=== PATIENT | female | born 2000 | race Caucasian/White ===

== ENCOUNTER 2019-08-01 14:14 | Emergency (ER) | payer MEDICAID, OTHER ==
[~2019-08-01] VITALS: Ht 161.3 cm; Wt 80.7 kg
[2019-08-01 14:17] VITALS: BP 131/82
--- NOTE | 2019-08-01 14:23 | NUR ---
PT AMBULATED TO ER BED 8
--- NOTE | 2019-08-01 14:25 | NUR ---
PT AMB TO BATHROOM TO PROVIDE URINE SAMPLE
--- NOTE | 2019-08-01 14:37 | NUR ---
19 YO F C/C OF VAGINAL BLEEDING DURING . PT IS 10 WEEKS AND STATES SHE STARTED HAVING LIGHT BLEEDING ONE WEEK AGO THAT STARTED INCREASING TODAY. PT DESCRIBES THE BLEEDING RED AND MODERATE. PT STATES SHE HAS 2/10 LOWER ABDOMINAL ACHING PAIN. THIS IS HER FIRST . PT TRAVELED TO [facility] 07/15-07/21, DENIES FEVER, COUGH OR SOB. HX: NA MEDS: VITAMINS NKA
--- NOTE | 2019-08-01 16:00 | NUR ---
PT RESTING IN BED. VSS.
--- NOTE | 2019-08-01 16:57 | NUR ---
LAB ORDER OBTAINED , GIVEN TO CEMENT WORKER
[2019-08-01 17:04] LABS: BASOPHILS # (AUTO) 0.1 K/uL (0.00-0.22); BASOPHILS % (AUTO) 0.7 % (0.0-2.0); EOSINOPHILS # (AUTO) 0.1 K/uL (0-0.4); EOSINOPHILS % (AUTO) 1.2 % (0.0-4.0); HEMATOCRIT 40.8 % (36-48); HEMOGLOBIN 13.3 g/dL (12.0-16.0); LYMPHOCYTES # (AUTO) 2.1 K/uL (2.5-16.5); LYMPHOCYTES % (AUTO) 21.8 % (20.5-51.1); MEAN CORPUSCULAR HEMOGLOBIN 26 pg (27-31); MEAN CORPUSCULAR HGB CONC 33 g/dL (33-37); MEAN CORPUSCULAR VOLUME 80.2 fL (80-94); MONOCYTES # (AUTO) 0.7 K/uL (0.8-1.0); MONOCYTES % (AUTO) 7.7 % (1.7-9.3); NEUTROPHILS # (AUTO) 6.6 K/uL (1.8-7.7); NEUTROPHILS % (AUTO) 68.6 % (42.2-75.2); PLATELET COUNT (AUTO) 321 K/uL (140-450); RED BLOOD CELL COUNT(AUTO) 5.08 MIL/uL (4.20-5.40); RED CELL DISTRIBUTION WIDTH 15.7 % (11.6-13.7); WHITE BLOOD COUNT (AUTO) 9.6 K/uL (4.8-10.8)
[2019-08-01 17:05] LABS: APPEARANCE,URINE CLEAR (CLEAR); BILIRUBIN,URINE NEGATIVE (NEGATIVE); BLOOD, URINE 3+ (NEGATIVE); COLOR,URINE YELLOW (YELLOW); LEUKOCYTE ESTERASE ,URINE TRACE (NEGATIVE); NITRITE, URINE NEGATIVE (NEGATIVE); UGLUCOSE NEGATIVE (NEGATIVE)
[2019-08-01 17:12] LABS: ANION GAP 13.9 (8-16); CARBON DIOXIDE 24.9 mmol/L (21-32); CREATININE 0.8 mg/dL (0.6-1.3); POTASSIUM 3.8 mmol/L (3.5-5.1)
[2019-08-01 17:18] LABS: WBC,URINE 0-5 /HPF (0-5)
[2019-08-01 18:46] VITALS: BP 119/57
--- NOTE | 2019-08-01 18:46 | NUR ---
Patient discharged with v/s stable. Written and verbal after care instructions given and explained. Patient verbalized understanding. Ambulatory with steady gait. All questions addressed prior to discharge. Advised to follow up with PMD.
== END 2019-08-01 18:46 | disposition home or self-care (01) ==
LOC: MED 14:14
DX: O20.0 Threatened abortion (principal); Z3A.12 12 weeks gestation of pregnancy
CPT/HCPCS: 36415; 76801; 80048; 81001; 81025; 84702; 85025; 86900; 86901; 87086; 99284; Q0092; 99285

== ENCOUNTER 2019-08-03 18:02 | Emergency (ER) | payer MEDICAID ==
[~2019-08-03] VITALS: Ht 162.6 cm; Wt 81.2 kg
[2019-08-03 18:04] VITALS: BP 126/89
--- NOTE | 2019-08-03 18:43 | NUR ---
LAB AT BEDSIDE
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
--- NOTE | 2019-08-03 18:55 | NUR ---
C/O VAGINAL SPOTTING X 10 DAYS. DENIES N/V/D 2, 1 PREVIOUS MISCARRIAGE PT CAME TO ER 2 DAYS AGO, WAS TOLD TO COME BACK TODAY TO GET VAGINAL US PERFORMED +ABDOMINAL CRAMPING PAIN 06/14. PT ALERT AND AWAKE, VS STABLE, AMBULATORY. PMH: NONE MEDS: NONE
--- NOTE | 2019-08-03 18:57 | NUR ---
US AT BEDSIDE
--- NOTE | 2019-08-03 18:58 | NUR ---
UNKNOWN LMP, APPROX LISA
[2019-08-03 19:05] LABS: ALBUMIN 3.6 g/dL (3.4-5.0); ANION GAP 14.5 (8-16); CARBON DIOXIDE 25.3 mmol/L (21-32); CREATININE 0.8 mg/dL (0.6-1.3); POTASSIUM 3.8 mmol/L (3.5-5.1); TOTAL BILIRUBIN 0.2 mg/dL (0.0-1.0)
--- NOTE | 2019-08-03 19:15 | NUR ---
REPORT GIVEN TO KENYA RN, PENDING US RESULTS
[2019-08-03 20:28] VITALS: BP 122/58
== END 2019-08-03 20:30 | disposition home or self-care (01) ==
LOC: MED 18:02
DX: O20.0 Threatened abortion (principal)
CPT/HCPCS: 36415; 76801; 80053; 81025; 84702; 99284; Q0092

== ENCOUNTER 2019-08-11 12:09 | Emergency (ER) | payer SELFPAY ==
[~2019-08-11] VITALS: Ht 162.6 cm; Wt 79.5 kg
[2019-08-11 12:10] VITALS: BP 125/75
[2019-08-11 12:18] VITALS: BP 109/89
[2019-08-11] MEDS ORDERED: NACL 0.9% 1,000 ML IV ONE ×2 (13:25→15:05)
[2019-08-11 13:38] LABS: BASOPHILS % (AUTO) 0.2 % (0.0-2.0); EOSINOPHILS % (AUTO) 0.2 % (0.0-4.0); HEMOGLOBIN 10.5 g/dL (12.0-16.0); LYMPHOCYTES # (AUTO) 1.4 K/uL (2.5-16.5); LYMPHOCYTES % (AUTO) 13.6 % (20.5-51.1); MEAN CORPUSCULAR HEMOGLOBIN 26 pg (27-31); MEAN CORPUSCULAR HGB CONC 33 g/dL (33-37); MEAN CORPUSCULAR VOLUME 79.4 fL (80-94); MONOCYTES # (AUTO) 0.6 K/uL (0.8-1.0); MONOCYTES % (AUTO) 5.7 % (1.7-9.3); NEUTROPHILS # (AUTO) 8.4 K/uL (1.8-7.7); NEUTROPHILS % (AUTO) 80.3 % (42.2-75.2); PLATELET COUNT (AUTO) 281 K/uL (140-450); RED BLOOD CELL COUNT(AUTO) 4.03 MIL/uL (4.20-5.40); RED CELL DISTRIBUTION WIDTH 15.3 % (11.6-13.7); WHITE BLOOD COUNT (AUTO) 10.4 K/uL (4.8-10.8)
[2019-08-11 14:06] LABS: APPEARANCE,URINE CLEAR (CLEAR); BILIRUBIN,URINE NEGATIVE (NEGATIVE); BLOOD, URINE 3+ (NEGATIVE); COLOR,URINE YELLOW (YELLOW); LEUKOCYTE ESTERASE ,URINE 2+ (NEGATIVE); NITRITE, URINE POSITIVE (NEGATIVE); UGLUCOSE TRACE (NEGATIVE)
[2019-08-11 14:28] LABS: RBC,URINE TOO NUMEROUS TO COUN /HPF (0-5); WBC,URINE 16-25 (MOD) /HPF (0-5)
[2019-08-11 16:28] VITALS: BP 120/62
== END 2019-08-11 16:27 | disposition home or self-care (01) ==
LOC: MED 12:09
DX: N93.9 Abnormal uterine and vaginal bleeding, unspecified (principal); D64.9 Anemia, unspecified; R42 Dizziness and giddiness
CPT/HCPCS: 36415; 76856; 81001; 84702; 85025; 86900; 86901; 87086; 93976; 96360; 96361; 99283; J7030; Q0092

== ENCOUNTER 2019-08-28 16:19 | Emergency (ER) | payer SELFPAY ==
[~2019-08-28] VITALS: Ht 162.6 cm; Wt 83.0 kg
[2019-08-28 16:22] VITALS: BP 132/83
--- NOTE | 2019-08-28 16:30 | NUR ---
PT AMBULATED TO BATHROOM, STEADY GAIT.
--- NOTE | 2019-08-28 16:47 | NUR ---
LAB AT BEDSIDE
--- NOTE | 2019-08-28 16:49 | NUR ---
LAB AT BEDSIDE.
--- NOTE | 2019-08-28 16:50 | NUR ---
BED RAILS UP X 1 AND BED IN LOWEST POSITION
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
--- NOTE | 2019-08-28 16:55 | NUR ---
ULTRASOUND AT BEDSIDE
[2019-08-28 17:03] LABS: BASOPHILS % (AUTO) 0.3 % (0.0-2.0); EOSINOPHILS # (AUTO) 0.2 K/uL (0-0.4); EOSINOPHILS % (AUTO) 2.1 % (0.0-4.0); HEMATOCRIT 25.7 % (36-48); HEMOGLOBIN 8.2 g/dL (12.0-16.0); LYMPHOCYTES # (AUTO) 1.9 K/uL (2.5-16.5); LYMPHOCYTES % (AUTO) 26.5 % (20.5-51.1); MEAN CORPUSCULAR HEMOGLOBIN 25 pg (27-31); MEAN CORPUSCULAR HGB CONC 32 g/dL (33-37); MEAN CORPUSCULAR VOLUME 77.4 fL (80-94); MONOCYTES # (AUTO) 0.6 K/uL (0.8-1.0); MONOCYTES % (AUTO) 8.7 % (1.7-9.3); NEUTROPHILS # (AUTO) 4.6 K/uL (1.8-7.7); NEUTROPHILS % (AUTO) 62.4 % (42.2-75.2); PLATELET COUNT (AUTO) 356 K/uL (140-450); RED BLOOD CELL COUNT(AUTO) 3.32 MIL/uL (4.20-5.40); RED CELL DISTRIBUTION WIDTH 16.3 % (11.6-13.7); WHITE BLOOD COUNT (AUTO) 7.3 K/uL (4.8-10.8)
[2019-08-28 17:10] LABS: APPEARANCE,URINE CLEAR (CLEAR); BILIRUBIN,URINE NEGATIVE (NEGATIVE); BLOOD, URINE 3+ (NEGATIVE); COLOR,URINE YELLOW (YELLOW); LEUKOCYTE ESTERASE ,URINE NEGATIVE (NEGATIVE); NITRITE, URINE NEGATIVE (NEGATIVE); PH,URINE 6.5 (5.0-9.0); UGLUCOSE NEGATIVE (NEGATIVE)
[2019-08-28 17:20] LABS: RBC,URINE >100 /HPF (0-5); WBC,URINE NONE SEEN /HPF (0-5)
[2019-08-28 17:31] LABS: ALBUMIN 3.5 g/dL (3.4-5.0); ANION GAP 13.5 (8-16); CARBON DIOXIDE 26.5 mmol/L (21-32); CREATININE 0.9 mg/dL (0.6-1.3); TOTAL BILIRUBIN 0.2 mg/dL (0.0-1.0)
--- NOTE | 2019-08-28 18:15 | NUR ---
ASSISTED MD AT BEDSIDE FOR VAGINAL EXAM
--- NOTE | 2019-08-28 18:34 | NUR ---
EASTERN PHILOSOPHY PROFESSOR AT BEDSIDE SPEAKING WITH PT
[2019-08-28] MEDS ORDERED: MISOPROSTOL 200 MCG TAB PO ONE (19:00)
[2019-08-28] MEDS ORDERED: IBUPROFEN 800 MG TAB PO ONE (19:00)
[2019-08-28] MEDS ORDERED: IBUPROFEN 800 MG TAB ONE (19:04)
--- NOTE | 2019-08-28 19:15 | NUR ---
IBUPROFEN 800MG PO GIVEN TO PT.
--- NOTE | 2019-08-28 19:19 | NUR ---
CALLED [employer] SP[employer]ER OPERATOR FOR MISOPROSTOL 0.2MG. SHE WILL CALL BACK DUE TO GIVING REPORT AT THIS TIME.
--- NOTE | 2019-08-28 19:20 | NUR ---
Pt report RECEIVED FROM DURGA FOURNIER . ASSUMED care OF PT at this time.
--- NOTE | 2019-08-28 19:24 | NUR ---
PT RESTING IN BED IN POSITION OF COMFORT, BED LOW AND LOCKED, 1 SIDERAIL UP, VSS, WILL CONTINUE TO MONITOR.
[2019-08-28] MEDS ORDERED: MISOPROSTOL 25 MCG TAB ONE (19:49)
[2019-08-28] MEDS ORDERED: MISOPROSTOL 200 MCG TAB ONE (19:58)
[2019-08-28 20:05] VITALS: BP 130/82
--- NOTE | 2019-08-28 20:05 | NUR ---
MISOPROSTOL 0.2MG GIVEN TO PT PO
--- NOTE | 2019-08-28 20:06 | NUR ---
PT STATED THE OBGYN DOCTOR INFORMED PT HE WAS SENDING HER HOME WITH AN RX FOR MISOPROSTOL AND IBUPROFEN BUT NO RX WITH D/C PAPERWORK, SO MECHANICAL TECHNICIAN PHONED DR. RIVERS AND INQUIRED ABOUT RX PT'S STATED SHE WAS SUPPOSED TO BE SENT HOME WITH, AND DR. RIVERS STATED HE SENT TO [facility] TO PT'S PHARMACY FOR PICKUP, SO MECHANICAL TECHNICIAN INFORMED PT OF THIS.
--- NOTE | 2019-08-28 20:10 | NUR ---
Patient discharged with v/s stable. Written and verbal after care instructions given and explained. Patient verbalized understanding. Ambulatory with steady gait. All questions addressed prior to discharge. Advised to follow up with PMD. AND PT INFORMED BY. TO FOLLOW UP WITH HIM ON FRIDAY.
== END 2019-08-28 20:05 | disposition home or self-care (01) ==
LOC: MED 16:19
DX: N93.9 Abnormal uterine and vaginal bleeding, unspecified (principal)
CPT/HCPCS: 36415; 76830; 80053; 81001; 81025; 85025; 99284; Q0092

== ENCOUNTER 2020-11-12 18:49 | Emergency (ER) | payer MEDICAID, OTHER ==
[~2020-11-12] VITALS: Ht 160 cm; Wt 79.4 kg
[2020-11-12 18:52] VITALS: BP 136/69
--- NOTE | 2020-11-12 19:00 | NUR ---
PATIENT AMBULATED TO BED3.
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
--- NOTE | 2020-11-12 19:35 | NUR ---
XRAY AT BEDSIDE
[2020-11-12] MEDS ORDERED: IBUP-2213 PO (21:21)
--- NOTE | 2020-11-12 21:28 | NUR ---
Dr. Watson examining patient.
[2020-11-12] MEDS: IBUPROFEN 600 MG TAB PO ONE (21:35)
[2020-11-12 21:40] VITALS: BP 136/69
== END 2020-11-12 21:40 | disposition home or self-care (01) ==
LOC: MED 18:49
DX: S52.592A Other fractures of lower end of left radius, initial encounter for closed fracture (principal); S80.01XA Contusion of right knee, initial encounter; Z79.899 Other long term (current) drug therapy; V86.99XA Unspecified occupant of other special all-terrain or other off-road motor vehicle injured in nontraffic accident, initial encounter; Y93.89 Activity, other specified; Y92.89 Other specified places as the place of occurrence of the external cause; Y99.8 Other external cause status
CPT/HCPCS: 73110; 73562; 81025; 99284